=== PATIENT | male | born 1965 | race Caucasian/White ===

== ENCOUNTER 2018-07-11 10:25 | Emergency (ER) | payer OTHER ==
[~2018-07-11] VITALS: Ht 167.6 cm; Wt 68.0 kg
[2018-07-11 10:28] VITALS: Ht 167.6 cm; Wt 68.0 kg
[2018-07-11 14:05] VITALS: BP 140/88
== END 2018-07-11 14:05 | disposition home or self-care (01) ==
LOC: ED 10:25
DX: J06.9 Acute upper respiratory infection, unspecified (principal)
CPT/HCPCS: Q0162

== ENCOUNTER 2020-03-29 21:38 | Emergency (ER) | payer OTHER ==
[~2020-03-29] VITALS: Ht 162.6 cm; Wt 65.8 kg
[2020-03-29 21:56] VITALS: Ht 162.6 cm; Wt 65.8 kg
[2020-03-29 23:46] VITALS: BP 118/78
== END 2020-03-29 23:46 | disposition home or self-care (01) ==
LOC: ED 21:38
DX: S30.0XXA Contusion of lower back and pelvis, initial encounter (principal); W18.30XA Fall on same level, unspecified, initial encounter; Y93.89 Activity, other specified; Y92.89 Other specified places as the place of occurrence of the external cause; Y99.8 Other external cause status

== ENCOUNTER 2020-07-30 16:59 | Emergency (ER) | payer OTHER ==
[~2020-07-30] VITALS: Ht 170.2 cm; Wt 66.7 kg
[2020-07-30 17:10] VITALS: Ht 170.2 cm; Wt 66.7 kg
[2020-07-30 17:30] VITALS: BP 138/86
[2020-07-30 17:34] LABS: microscopic required? NO
[2020-07-30 17:42] LABS: UA SPECIFIC GRAVITY >=1.030 (1.005-1.035); urine erythrocyte NEGATIVE (NEGATIVE)
[2020-07-30 17:42] LABS: BASOPHIL % 0.1 % (0.2-1.5); PLATELET COUNT 205 x10^3mcL (152-348)
[2020-07-30 17:44] LABS: RED CELL DISTRIBUTION WIDTH 16.7 % (12.1-16.2)
[2020-07-30 17:58] LABS: CALCIUM 9.3 mg/dL (8.5-10.1); CARBON DIOXIDE 29.5 mmol/L (21-32); CHLORIDE SERUM 104 mmol/L (98-107); GFR1 > 60 mL/min; GLUCOSE SERUM 153 mg/dL (74-106); SODIUM SERUM 138 mmol/L (136-145)
[2020-07-30 18:01] LABS: rbc morphology (normal/abnorm) ABNORMAL (NORMAL); tear drop cell (dacryocyte) 1+
[2020-07-30 18:02] LABS: ALBUMIN 4.2 g/dL (3.4-5.0); ALKALINE PHOSPHATASE 80 U/L (46-116); ALT/SGPT 49 U/L (16-63); AST/SGOT 24 U/L (15-37); BILIRUBIN TOTAL 0.6 mg/dL (0.20-1.00); LIPASE 126 IU/L (73-393); TOTAL PROTEIN, SERUM 7.9 g/dL (6.4-8.2)
[2020-07-30] MEDS ORDERED: PEPCID20 MG PO (18:16)
== END 2020-07-30 18:50 | disposition home or self-care (01) ==
LOC: ED 16:59
PROVIDERS: Emergency Medicine
DX: R10.13 Epigastric pain (principal)